=== PATIENT | male | born 2000 | race Caucasian/White ===

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

== ENCOUNTER 2021-05-17 18:17 | Emergency (ER) | payer SELFPAY ==
[~2021-05-17] VITALS: Ht 172.7 cm; Wt 101.3 kg
[2021-05-17 18:17] VITALS: BP 133/79
[2021-05-17] MEDS: IBUPROFEN 600 MG TABLET. PO ONE (20:26)
[2021-05-17] MEDS: PENICILLIN V K 250 MG TABLET. PO ONE (20:26)
[2021-05-17] MEDS: HYDROcodone/APAP 5/325MG 1 TAB TABLET PO ONE (20:27)
[2021-05-17] MEDS ORDERED: PENI500T PO (20:27)
--- NOTE | 2021-05-17 20:27 | PHYS DOC ---
Past History Past Medical History: No Pertinent History (IAN SEALS APRN) Past Surgical History: Appendectomy, Tonsillectomy, Other Additional Past Surgical Histo: ankle surgery (IAN SEALS APRN) Alcohol Use: None (IAN SEALS APRN) General Adult EDM: Chief Complaint: DENTAL PROBLEM HPI: HPI: Patient is a 20-year-old male presents with left sided, lower dental pain patient states he has been having pain for the last few days. Patient also reporting left-sided facial swelling. Denies fever. Patient been taking ibuprofen and Tylenol with little relief. Patient states that pain is keeping him up at night. Denies taking anything today for pain. Patient states he does not have a dentist but needs a referral. (IAN SEALS APRN) Review of Systems: Review of Systems: Constitutional: Denies fever or chills Eyes: Denies change in visual acuity HENT: Left, lower dental pain, facial swelling Respiratory: Denies cough or shortness of breath Cardiovascular: Denies chest pain or edema GI: Denies abdominal pain, nausea, vomiting, bloody stools or diarrhea : Denies dysuria Musculoskeletal: Denies back pain or joint pain Integument: Denies rash Neurologic: Denies headache, focal weakness or sensory changes Endocrine: Denies polyuria or polydipsia Lymphatic: Denies swollen glands Psychiatric: Denies depression or anxiety (IAN SEALS APRN) Current Medications: Current Meds: Current Medications Medications (Trade) Dose Ordered Sig/Macho Start Time Stop Time Status Last Admin Dose Admin Acetaminophen/ Hydrocodone Bitart (Lortab 5/325) 1 tab 1X ONCE 05/17/21 20:15 05/17/21 20:16 UNV Ibuprofen (Motrin) 600 mg 1X ONCE 05/17/21 20:15 05/17/21 20:16 UNV (IAN SEALS APRN) Allergies: Allergies: Allergies Coded Allergies Type Severity Reaction Last Updated Verified Sulfa (Sulfonamide Antibiotics) Allergy Unknown 12/14/20 Yes codeine Allergy Unknown 12/14/20 Yes morphine Allergy Unknown 12/14/20 Yes (IAN SEALS APRN) Physical Exam: PE: Constitutional: Well developed, well nourished, no acute distress, non-toxic appearance. [] HENT: Normocephalic, atraumatic, bilateral external ears normal, oropharynx moist, no oral exudates, nose normal. [] Eyes: PERRLA, EOMI, conjunctiva normal, no discharge. [] Neck: Normal range of motion, no tenderness, supple, no stridor. [] Cardiovascular:Heart rate regular rhythm, no murmur [] Lungs & Thorax: Bilateral breath sounds clear to auscultation [] Abdomen: Bowel sounds normal, soft, no tenderness, no masses, no pulsatile masses. [] Skin: Warm, dry, no erythema, no rash. [] Back: No tenderness, no CVA tenderness. [] Extremities: No tenderness, no cyanosis, no clubbing, ROM intact, no edema. [] Neurologic: Alert and oriented X 3, normal motor function, normal sensory function, no focal deficits noted. [] Psychologic: Affect normal, judgement normal, mood normal. [] (IAN SEALS APRN) Current Patient Data: Vital Signs: Vital Signs Date Time Temp Pulse Resp B/P (MAP) Pulse Ox O2 Delivery O2 Flow Rate FiO2 05/17/21 18:17 98.0 90 18 133/79 98 Room Air (IAN SEALS APRN) EKG: EKG: [] (IAN SEALS APRN) Radiology/Procedures: Radiology/Procedures: [] (IAN SEALS APRN) Heart Score: C/O Chest Pain: No Risk Factors: Risk Factors: DM, Current or recent (<one month) smoker, HTN, HLP, family history of CAD, obesity. Risk Scores: Score 0 - 3: 2.5% MACE over next 6 weeks - Discharge Home Score 4 - 6: 20.3% MACE over next 6 weeks - Admit for Clinical Observation Score 7 - 10: 72.7% MACE over next 6 weeks - Early Invasive Strategies (IAN SEALS APRN) Course & Med Decision Making: Course & Med Decision Making Pertinent Labs and Imaging studies reviewed. (See chart for details) [] 20-year-old male presents with left-sided, lower dental pain and facial swelling. Patient is able to maintain secretions, denies issues with opening and closing mouth. patient states he has been using ibuprofen and Tylenol at home with no relief. Patient given 500 mg penicillin VK while in the ED along with hydrocodone, 5/325. Instructed patient to be taking ibuprofen and Tylenol as scheduled throughout the day for pain. Make sure he takes his antibiotic as directed and in full. Patient given a dentist for referral. Patient directed t o follow-up with dentist and explained to patient that infection will return if the tooth is not handled properly. Patient states he understands and is okay with discharge plan (IAN SEALS APRN) Dragon Disclaimer: Dragon Disclaimer: This electronic medical record was generated, in whole or in part, using a voice recognition dictation system. (IAN SEALS APRN) Departure Departure: Impression: Primary Impression: Pain, dental Additional Impression: Left facial swelling Disposition: HOME / SELF CARE / HOMELESS Condition: STABLE Referrals: PCP,NO (PCP) Patient Instructions: Dental Pain, [id number] Additional Instructions: You were given penicillin in the ER to help with infection. They were also given hydrocodone for pain. Alternate between Tylenol and ibuprofen at home for pain. Please take antibiotic as directed and in full. We are providing you with a contact for a dental provider. Please call and make an appointment. Your swelling and pain will return if the tooth is not taking care of properly. Turn to the emergency room if you have worsening symptoms or concerns EMERGENCY DEPARTMENT GENERAL DISCHARGE INSTRUCTIONS Thank you for coming to [facility] (ED) today and trusting us with you care. We trust that you had a positivie experience in our Emergency Department. If you wish to speak to the department management, you may call the director at [phone]. YOUR FOLLOW UP INSTRUCTIONS ARE FOLLOWS: 1. Do you have a private Doctor? If you do not have a private doctor, please ask for a resource list of physicians or clinics that may be able to assist you with follow up care. 2. The Emergency Physician has interpreted your x-rays. The X-Ray specialist will also review them. If there is a change in the findings, you will be notified in 48 hours when at all possible. 3. A lab test or culture has been done, your results will be reviewed and you will be notified if you need a change in treatment. ADDITIONAL INSTRUCTIONS AND INFORMATION: 1. Your care today has been supervised by a physician who is specially trained in emergency care. Many problems require more than one evaluation for a complete diagnosis and treatment. We recommend that you schedule your follow up appointment as recommended to ensure complete treatment of you illness or injury. If you are unable to obtain follow up care and continue to have a problem, or if your condition worsens, we recommend that you return to the ED. 2. We are not able to safely determine your condition over the phone nor are we able to give sound medical advice over the phone. For these safety reasons, if you call for medical advice we will ask you to come to the ED for further evaluation. 3. If you have any questions regarding these discharge instructions please call the ED at [phone]. SAFETY INFORMATION: In the interest of safety, wellness, and injury prevention; we encourage you to wear your sealbelt, if you smoke; quite smoking, and we encourage family to use a protective helmet for bicycling and other sporting events that present an increased risk for head injury. IF YOUR SYMPTOMS WORSEN OR NEW SYMPTOMS DEVELOP, OR YOU HAVE CONCERNS ABOUT YOUR CONDITION; OR IF YOUR CONDITION WORSENS WHILE YOU ARE WAITING FOR YOUR FOLLOW UP APPOINTMENT; EITHER CONTACT YOUR PRIMARY CARE DOCTOR, THE PHYSICIAN WHOSE NAME AND NUMBER YOU WERE GIVEN, OR RETURN TO THE ED IMMEDIATELY. Scripts Penicillin V Potassium (PENICILLIN V POTASSIUM) 500 Mg Tablet 1 TAB PO QID for dental infection for 7 Days, #28 TAB Prov: IAN SEALS APRN 05/17/21 Attending Signature Attending Signature I have participated in the care of this patient and I have reviewed and agree with all pertinent clinical information above including history, exam, and recommendations. (YUAN AFLARO MD) IAN SEALS APRN May 17, 2021 20:27 YUAN ALFARO MD May 22, 2021 08:16
== END 2021-05-17 20:35 | disposition home or self-care (01) ==
LOC: ER 18:17
DX: K08.89 Other specified disorders of teeth and supporting structures (principal); R22.0 Localized swelling, mass and lump, head; Z88.2 Allergy status to sulfonamides; Z88.5 Allergy status to narcotic agent
CPT/HCPCS: 99284